=== PATIENT | female | born 1950 | race African-American/Black ===

== ENCOUNTER 2017-07-03 17:36 | Emergency (ER) | payer OTHER ==
[~2017-07-03] VITALS: Ht 162.6 cm; Wt 70.3 kg
[~2017-07-03 17:36] MED LIST: ALPRAZOLAM ER1 MG PO; BACTRIM DS TAB1 EACH PO; COMBIVENT RESPIM4 GM IH; LISINOPRIL40 MG; MOBIC7.5 MG PO; NAPROSYN250 MG PO; NORCO 5-325 TA1 EACH PO; NORFLEX100 MG PO; PREDNISONE 20 M20 M1 PO; SYMBICORT160 MCG/4. INH; TRIAMTERENE/HCT1 CA1 PO; ULTRAM 50MG TAB50 MG PO; XANAX 1 MG TABLE1 MG PO; ZESTORETIC 20-1 EAC3; ZPAK PO
[2017-07-03 17:51] VITALS: BP 157/66
[2017-07-03] MEDS ORDERED: TRAMADOL 50 MG50 MG PO (17:59)
[2017-07-03] MEDS ORDERED: HYDROCHLOROTH12.5 M1 PO (17:59)
== END 2017-07-03 18:58 | disposition home or self-care (01) ==
LOC: ER 17:36 → EDBD 17:36 → ER 18:58
DX: S30.0XXA Contusion of lower back and pelvis, initial encounter (principal); J44.9 Chronic obstructive pulmonary disease, unspecified; I10 Essential (primary) hypertension; W01.0XXA Fall on same level from slipping, tripping and stumbling without subsequent striking against object, initial encounter; Y93.89 Activity, other specified; Y92.89 Other specified places as the place of occurrence of the external cause; Y99.8 Other external cause status

== ENCOUNTER 2017-11-08 14:45 | Inpatient (IN) | payer OTHER ==
[~2017-11-08] VITALS: Ht 165.1 cm; Wt 70.3 kg
--- NOTE | ~2017-11-08 | EKG ---
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: mike : 1950 Requested By: Tom Craft Order Number: [id number] MD: Papi Lyle Measurements Intervals [place] Rate: 94 P: 61 MI: 147 QRS: 18 QRSD: 78 T: 26 QT: 327 QTc: 409 Interpretive Statements Sinus rhythm No significant abnormality Compared to ECG 08/28/2012 16:43:46 Sinus tachycardia no longer present Electronically Signed On 11-09-2017 8:09:42 CDT by Papi Lyle [email or web address] <ELECTRONICALLY SIGNED> By: Papi Lyle MD, [facility] 11/09/17 0809 [id number] Papi Lyle MD, [facility] /EPI
[~2017-11-08 14:45] MED LIST changes: +HYDROCHLOROTH12.5 M1 PO; +TRAMADOL 50 MG50 MG PO
[2017-11-08 14:58] VITALS: BP 118/67
[2017-11-08 15:30] LABS: HEMATOCRIT 27.1 % (37.0-47.0); HEMOGLOBIN 9.1 gm/dL (12.0-15.0); MCH 28.8 pg (26.0-34.0); MCHC 33.4 g/dL (28.0-37.0); MCV 86.2 fL (80.0-100.0); PLATELET COUNT 328 thou/uL (150-400); RBC 3.15 mil/uL (4.20-5.00); RDW 14.5 % (10.5-14.5); WBC 16.4 thou/uL (4.0-11.0)
[2017-11-08 15:40] LABS: ANION GAP 7 mmol/L (7-16); BUN 46 mg/dL (7-18); CALCIUM 9.9 mg/dL (8.5-10.1); CHLORIDE 101 mmol/L (98-107); CO2 27 mmol/L (21-32); CREATININE 2.9 mg/dL (0.6-1.0); GLUCOSE 118 mg/dL (74-106); POTASSIUM 3.4 mmol/L (3.5-5.1); SODIUM 135 mmol/L (136-145)
[2017-11-08 15:48] LABS: ALBUMIN 2.9 g/dL (3.4-5.0); DIRECT BILIRUBIN 0.2 mg/dL (<0.1-0.3); LIPASE 130 U/L (73-393); SGOT 87 U/L (15-37); SGPT 76 U/L (30-65); TOTAL BILIRUBIN 0.5 mg/dL (<0.1-1.0); TOTAL PROTEIN 8.5 g/dL (6.4-8.2); TROPONIN-I < 0.04 ng/mL (<0.06)
[2017-11-08 15:52] LABS: ABSOLUTE NEUTROPHILS 12.8 thou/uL (1.4-8.2)
[2017-11-08 16:34] LABS: URINE BILIRUBIN NEGATIVE (Negative); URINE BLOOD TRACE (Negative); URINE CLARITY CLEAR; URINE COLOR YELLOW; URINE GLUCOSE-RANDOM* NEGATIVE (Negative); URINE KETONES NEGATIVE (Negative); URINE LEUKOCYTES-REFLEX NEGATIVE (Negative); URINE NITRITE-REFLEX NEGATIVE (Negative); URINE PROTEIN (DIPSTICK) TRACE (Negative); URINE UROBILINOGEN 0.2 E.U./dl (0.2-1.0)
[2017-11-08 17:05] VITALS: BP 118/67
[2017-11-08 18:03] VITALS: BP 116/76
[2017-11-08 19:46] VITALS: BP 116/79
[2017-11-09 04:16] VITALS: BP 104/63
[2017-11-09 06:05] LABS: HEMATOCRIT 24.9 % (37.0-47.0); HEMOGLOBIN 8.2 gm/dL (12.0-15.0); MCH 28.3 pg (26.0-34.0); MCHC 32.8 g/dL (28.0-37.0); MCV 86.3 fL (80.0-100.0); PLATELET COUNT 317 thou/uL (150-400); RBC 2.88 mil/uL (4.20-5.00); RDW 14.7 % (10.5-14.5); WBC 16.5 thou/uL (4.0-11.0)
[2017-11-09 06:32] LABS: CALCIUM 9.4 mg/dL (8.5-10.1); CREATININE 2.5 mg/dL (0.6-1.0); MAGNESIUM 1.9 mg/dL (1.8-2.4); POTASSIUM 3.6 mmol/L (3.5-5.1)
[2017-11-09 07:45] VITALS: BP 115/68
[2017-11-09 14:14] LABS: ABSOLUTE NEUTROPHILS 12.7 thou/uL (1.4-8.2); METAMYELOCYTES 1 %
[2017-11-09 16:24] VITALS: BP 107/64
[2017-11-09 20:32] VITALS: BP 126/67
[2017-11-10 04:00] VITALS: BP 126/69
[2017-11-10 06:02] LABS: HEMATOCRIT 24.4 % (37.0-47.0); HEMOGLOBIN 7.9 gm/dL (12.0-15.0); MCH 27.6 pg (26.0-34.0); MCHC 32.2 g/dL (28.0-37.0); MCV 85.8 fL (80.0-100.0); RBC 2.85 mil/uL (4.20-5.00); RDW 14.2 % (10.5-14.5); WBC 20.7 thou/uL (4.0-11.0)
[2017-11-10 06:14] LABS: CALCIUM 9.5 mg/dL (8.5-10.1); CREATININE 2.2 mg/dL (0.6-1.0); MAGNESIUM 1.9 mg/dL (1.8-2.4); POTASSIUM 4.2 mmol/L (3.5-5.1)
[2017-11-10 07:35] VITALS: BP 125/67
[2017-11-10 16:49] VITALS: BP 148/82
[2017-11-10 20:05] VITALS: BP 136/76
[2017-11-11 06:55] LABS: HEMATOCRIT 25.5 % (37.0-47.0); HEMOGLOBIN 8.2 gm/dL (12.0-15.0); MCH 27.8 pg (26.0-34.0); MCHC 32.2 g/dL (28.0-37.0); MCV 86.4 fL (80.0-100.0); RBC 2.95 mil/uL (4.20-5.00); RDW 14.5 % (10.5-14.5); WBC 21.2 thou/uL (4.0-11.0)
[2017-11-11 07:08] LABS: CALCIUM 9.4 mg/dL (8.5-10.1); CREATININE 2.3 mg/dL (0.6-1.0); MAGNESIUM 2.3 mg/dL (1.8-2.4); POTASSIUM 4.5 mmol/L (3.5-5.1)
[2017-11-11 07:10] VITALS: BP 158/95
[2017-11-11] MEDS ORDERED: TRIAMTERENE-HC1 EAC3 PO (08:42)
[2017-11-11 11:17] LABS: ALBUMIN 2.6 g/dL (3.4-5.0); DIRECT BILIRUBIN < 0.1 mg/dL (<0.1-0.3); SGOT 87 U/L (15-37); SGPT 94 U/L (30-65); TOTAL BILIRUBIN 0.3 mg/dL (<0.1-1.0); TOTAL PROTEIN 7.7 g/dL (6.4-8.2)
[2017-11-11] MEDS ORDERED: LEVAQUIN 750 M750 MG PO (13:39)
[2017-11-11] MEDS ORDERED: MUCINEX600 MG PO (13:40)
[2017-11-11] MEDS ORDERED: PREDNISONE 10 M10 MG PO (13:54)
[2017-11-11 14:13] LABS: GLOMERULR BASEM MEMBRN AB 4 units (0-20)
[2017-11-11 14:32] VITALS: BP 158/95
[2017-11-11 22:10] LABS: ADENOVIRUS Negative (Negative); INFLUENZA A Negative (Negative); INFLUENZA B Negative (Negative); METAPNEUMOVIRUS Negative (Negative); PARAINFLUENZA 1 Negative (Negative); PARAINFLUENZA 2 Negative (Negative); PARAINFLUENZA 3 Negative (Negative); RHINOVIRUS Negative (Negative); RSV A Negative (Negative); RSV B Negative (Negative)
== END 2017-11-11 15:37 | disposition home or self-care (01) | DRG 871 ==
LOC: ER 14:45 → EROBS 16:48 → 4W 16:48 → EDBD 16:48 → 4W 18:04 → ENTRNSPT 11-10 14:26 → EDTRNSPTSTS 11-10 14:27 → SICU 11-10 14:42
PROVIDERS: Emergency Medicine; Internal Medicine; Internal Medicine Pulmonary Disease
PROC: 0GBG3ZX Excision of Left Thyroid Gland Lobe, Percutaneous Approach, Diagnostic (ICD-10-PCS; principal; 2017-11-10)
PROC: 0GBH3ZX Excision of Right Thyroid Gland Lobe, Percutaneous Approach, Diagnostic (ICD-10-PCS; principal; 2017-11-10)
DX: A41.9 Sepsis, unspecified organism (principal); J18.1 Lobar pneumonia, unspecified organism; N17.0 Acute kidney failure with tubular necrosis; J44.9 Chronic obstructive pulmonary disease, unspecified; K52.9 Noninfective gastroenteritis and colitis, unspecified; N18.3 Chronic kidney disease, stage 3 (moderate); E04.1 Nontoxic single thyroid nodule; I12.9 Hypertensive chronic kidney disease with stage 1 through stage 4 chronic kidney disease, or unspecified chronic kidney disease; D64.9 Anemia, unspecified; J98.4 Other disorders of lung; J84.10 Pulmonary fibrosis, unspecified; Z87.891 Personal history of nicotine dependence; Z90.49 Acquired absence of other specified parts of digestive tract; Z79.899 Other long term (current) drug therapy
CPT/HCPCS: 10040; 15002